=== PATIENT | female | born 1955 | race Caucasian/White ===

== ENCOUNTER → 2017-12-18 | Outpatient (CLI) | payer OTHER ==
[~2017-12-18] MED LIST: ASCO-90 PO; ATOR10TA9 PO; CALC-79 PO; CHOL100012 PO; CHOL200024 PO; CYCL1DRO EACHEYE; FISH1CAP PO; LOTE5DRO2 EACHEYE; OLOP2.5D EACHEYE; OLOP5DRO EACHEYE; OXYC1TAB8 PO; SODI1TAB11 PO; [UNRECOGNIZED DRUG - CODE] PO
== END ==
LOC: STAR 12:57
PROVIDERS: ATTEND Obstetrics & Gynecology
DX: Z01.818 Encounter for other preprocedural examination (principal); I45.10 Unspecified right bundle-branch block; I25.2 Old myocardial infarction
CPT/HCPCS: 71046; 93005

== ENCOUNTER 2017-12-27 05:39 | Observation (INO) | payer OTHER ==
[2017-12-18 13:52] VITALS: BP 144/93
[~2017-12-27] VITALS: Ht 165.1 cm; Wt 90.7 kg
[2017-12-27] MEDS ORDERED: LACTATED RINGERS 1,000 ML IV SCH (07:04)
[2017-12-27] MEDS ORDERED: MIDAZOLAM 1 MG/ML, 2ML ONE (07:15)
[2017-12-27] MEDS ORDERED: EPINEPHRINE 1 MG/ML, 1ML ONE (07:15)
[2017-12-27] MEDS ORDERED: ESTROGENS CONJUGATED VAG CRM 0.625MG/1G, 30GM ONE (07:15)
[2017-12-27] MEDS ORDERED: GENTAMICIN 80 MG/2 ML ONE (07:15)
[2017-12-27] MEDS ORDERED: FENTANYL PF 250 MCG/5ML ONE ×2 (07:15→08:57)
[2017-12-27] MEDS ORDERED: THROMBIN 5,000 UNIT VIAL TP ONE (07:15)
[2017-12-27] MEDS ORDERED: INDIGO CARMINE 0.8%, 5ML ONE (07:15)
[2017-12-27] MEDS ORDERED: VANCOMYCIN 500 MG ONE (07:15)
[2017-12-27] MEDS ORDERED: ACETAMINOPHEN 500 MG TABLET ONE ×2 (07:26)
[2017-12-27] MEDS ORDERED: OxyconTIN ER 20 MG TAB.ER ONE ×2 (07:26)
[2017-12-27] MEDS ORDERED: BUPIVACAINE/PF 0.25% ONE (07:34)
[2017-12-27] MEDS ORDERED: BUPIVACAINE/PF-EPI 0.25% 1:200K INFIL ONE (08:05)
[2017-12-27] MEDS ORDERED: INDIGO CARMINE 0.8%, 5ML IV ONE (08:06)
[2017-12-27] MEDS ORDERED: OXYcodone 5 MG/5 ML ORAL.SOL UDC PO PRN (08:30)
[2017-12-27] MEDS ORDERED: SUGAMMADEX 200 MG/2 ML IVPush ONE (08:30)
[2017-12-27] MEDS ORDERED: MORPHINE SULFATE 4 MG/ML, 1ML IVPush PRN (08:30)
[2017-12-27] MEDS ORDERED: FENTANYL PF 100 MCG/2ML IV PRN (08:30)
[2017-12-27] MEDS ORDERED: LORazepam 2 MG/ML, 1ML IVPush PRN (08:30)
[2017-12-27] MEDS ORDERED: LABETALOL 5MG/ML, 20ML IV PRN (08:30)
[2017-12-27] MEDS ORDERED: ALBUTEROL SULFATE 2.5 MG/3 ML NPPB PRN (08:30)
[2017-12-27] MEDS ORDERED: hydrALAzine 20 MG/ML, 1ML IV PRN (08:30)
[2017-12-27] MEDS ORDERED: MEPERIDINE/PF 25MG/0.5ML IVPush PRN (08:30)
[2017-12-27] MEDS ORDERED: HYDROmorphone 1 MG/ML, 1ML IV PRN (08:30)
[2017-12-27] MEDS ORDERED: PROMETHAZINE 25 MG/ML, 1ML IV PRN (08:30)
[2017-12-27] MEDS ORDERED: FUROSEMIDE 20 MG/2 ML ONE (08:53)
[2017-12-27] MEDS ORDERED: OXYcodone 5 MG/5 ML ORAL.SOL UDC ONE (10:32)
[2017-12-27] MEDS ORDERED: ROCURONIUM 10 MG/ML,10ML ONE (15:52)
[2017-12-27] MEDS ORDERED: PROPOFOL 10 MG/ML, 20ML ONE (15:52)
[2017-12-27] MEDS ORDERED: DEXAMETHASONE 4 MG/ML, 1ML ONE (15:52)
[2017-12-27] MEDS ORDERED: CEFAZOLIN 1,000 MG ONE (15:52)
[2017-12-27] MEDS ORDERED: OXYcodone/APAP 5/325MG TABLET PO PRN (18:00)
[2017-12-27] MEDS ORDERED: ONDANSETRON 2MG/ML, 2ML IVPush PRN (18:00)
[2017-12-27] MEDS: SODIUM CHLORIDE FLUSH 10ML SYR IVF SCH (20:35)
[2017-12-28] MEDS: KETOROLAC 30 MG/1 ML IVPush SCH ×2 (00:02→06:06)
[2017-12-28 03:44] VITALS: BP 115/56
[2017-12-28 08:00] VITALS: BP 107/58
[2017-12-28] MEDS: SODIUM CHLORIDE FLUSH 10ML SYR IVF SCH (09:00)
== END 2017-12-28 09:45 | disposition home or self-care (01) ==
LOC: OUT 05:39 → ORIP 17:35 → 4NOR 18:54
PROVIDERS: ADMIT Obstetrics & Gynecology; ATTEND Obstetrics & Gynecology
DX: D21.9 Benign neoplasm of connective and other soft tissue, unspecified (principal); N81.4 Uterovaginal prolapse, unspecified; E78.5 Hyperlipidemia, unspecified; N80.0 Endometriosis of uterus; N88.8 Other specified noninflammatory disorders of cervix uteri
CPT/HCPCS: 36415; 58260; 85014; 85018; 88307; 96374; 96376; G0378; J0171; J0690; J1100; J1885; J1940; J2250; J2704; J3010; J3490; J7120; J3370; J1580